=== PATIENT | male | born 1955 | race Caucasian/White ===

== ENCOUNTER → 2018-07-22 | Outpatient (CLI) | payer MEDICARE ==
[~2018-07-22] MED LIST: AMLO10TA6 PO; AMOX1TAB64 PO; DOXA1TAB2 PO; FINA5TAB4 PO; HYDR-2442 PO; LOSA100T7 PO; METH1TAB21 PO; METO25TA35 PO; PROM12.553 RC; TAMS0.4C2 PO
== END | disposition home or self-care (01) ==
LOC: RAD 09:35
PROVIDERS: ATTEND Urology
DX: N35.011 Post-traumatic bulbous urethral stricture (principal)
CPT/HCPCS: 74018

== ENCOUNTER 2018-08-24 12:34 | Outpatient (CLI) | payer MEDICARE | END 2018-09-04 09:07 | disposition home or self-care (01) | LOC: RAD 12:34 | PROVIDERS: ATTEND Urology | DX: N35.919 Unspecified urethral stricture, male, unspecified site (principal) | CPT/HCPCS: 51600; 74450 ==

== ENCOUNTER → 2018-10-16 | Outpatient (CLI) | payer MEDICARE ==
[~2018-10-16] MED LIST changes: +CLON0.1T22 PO
[2018-10-16 11:22] LABS: BASOPHILS # (AUTO) 0.03 x10^3/uL (0-0.1); BASOPHILS % (AUTO) 0 % (0-1); EOSINOPHILS # (AUTO) 0.33 x10^3/uL (0-0.4); EOSINOPHILS % (AUTO) 3 % (1-7); LYMPHOCYTES # (AUTO) 1.67 x10^3/uL (1-3.4); LYMPHOCYTES % (AUTO) 13 % (22-44); MD NO; MEAN CORPUSCULAR HEMOGLOBIN 31.3 pg (27.5-34.5); MEAN CORPUSCULAR VOLUME 92.3 fL (81-97); MEAN PLATELET VOLUME 7.7 fL (7.4-10.4); MONOCYTES # (AUTO) 0.87 x10^3/uL (0.2-0.8); MONOCYTES % (AUTO) 7 % (2-9); NEUTROPHILS # (AUTO) 9.61 x10^3/uL (1.8-6.8); NEUTROPHILS % (AUTO) 77 % (42-75); PLATELET COUNT 309 x10^3/uL (130-400); RED BLOOD COUNT 4.79 x10^6/uL (4.38-5.82); RED CELL DISTRIBUTION WIDTH 14.3 % (9.4-14.8)
[2018-10-16 11:38] LABS: MICROSCOPIC INDICATED
[2018-10-16 12:03] LABS: ANION GAP 6 mmol/L (5-15); CHLORIDE 111 mmol/L (98-107)
[2018-10-16 12:30] LABS: ALANINE AMINOTRANSFERASE 26 U/L (12-78); ALBUMIN 3.1 g/dL (3.4-5.0); ALKALINE PHOSPHATASE 78 U/L (45-117); BILIRUBIN,TOTAL 0.4 mg/dL (0.2-1.0); CALCIUM 8.8 mg/dL (8.5-10.1); CREATININE 0.95 mg/dL (0.7-1.3); TOTAL PROTEIN 8.1 g/dL (6.4-8.2)
== END | disposition home or self-care (01) ==
LOC: STAR 10:27
PROVIDERS: ATTEND Urology
DX: Z01.818 Encounter for other preprocedural examination (principal); N35.919 Unspecified urethral stricture, male, unspecified site; I10 Essential (primary) hypertension; Z87.891 Personal history of nicotine dependence
CPT/HCPCS: 36415; 71045; 80053; 81001; 85025; 87086; 93005

== ENCOUNTER 2018-11-02 11:55 | Inpatient (IN) | payer MEDICARE ==
[~2018-11-02] VITALS: Ht 162.6 cm; Wt 58.7 kg
[~2018-11-02 11:55] MED LIST changes: -AMLO10TA6 PO; +AMLO10TA8 PO; +LOSA100T14 PO; -LOSA100T7 PO
[2018-11-02] MEDS ORDERED: LACTATED RINGERS 1,000 ML IV SCH (12:23)
[2018-11-02 12:50] VITALS: BP 111/69
[2018-11-02] MEDS ORDERED: SULF1TAB24 PO (12:57)
[2018-11-02] MEDS ORDERED: ALBUTEROL/IPRATROPIUM 2.5MG/0.5MG, 3 ML ONE ×2 (13:40→17:01)
[2018-11-02] MEDS ORDERED: ALBUTEROL/IPRATROPIUM 2.5MG/0.5MG, 3 ML NEB ONE (13:40)
[2018-11-02] MEDS ORDERED: SUGAMMADEX 200 MG/2 ML IVPush ONE (13:47)
[2018-11-02] MEDS ORDERED: PROPOFOL 10 MG/ML, 20ML ONE ×2 (14:00→14:57)
[2018-11-02] MEDS ORDERED: FENTANYL PF 100 MCG/2ML ONE ×2 (14:00→17:02)
[2018-11-02] MEDS ORDERED: ALBUTEROL/IPRATROPIUM 2.5MG/0.5MG, 3 ML NPPB ONE (14:00)
[2018-11-02] MEDS ORDERED: CEFAZOLIN 1,000 MG ONE (14:00)
[2018-11-02] MEDS ORDERED: MORPHINE SULFATE 4 MG/ML, 1ML IVPush PRN (15:00)
[2018-11-02] MEDS ORDERED: MEPERIDINE/PF 25MG/0.5ML IVPush PRN (15:00)
[2018-11-02] MEDS ORDERED: HYDROcodone/APAP 7.5-325MG/15ML UDC PO PRN (15:00)
[2018-11-02] MEDS ORDERED: ALBUTEROL/IPRATROPIUM 2.5MG/0.5MG, 3 ML NPPB PRN (15:00)
[2018-11-02] MEDS ORDERED: HYDROmorphone 2 MG/ML, 1ML IVPush PRN (15:00)
[2018-11-02] MEDS ORDERED: OXYcodone 5 MG/5 ML ORAL.SOL UDC ONE ×2 (17:02→17:36)
[2018-11-02] MEDS: FENTANYL PF 100 MCG/2ML IV PRN ×3 (17:04→17:30)
[2018-11-02] MEDS: OXYcodone 5 MG/5 ML ORAL.SOL UDC PO PRN ×2 (17:10→17:35)
[2018-11-02] MEDS ORDERED: KETOROLAC 30 MG/1 ML ONE (17:26)
[2018-11-02] MEDS: KETOROLAC 30 MG/1 ML IVPush PRN (17:30)
[2018-11-02] MEDS ORDERED: EPHEDRINE 50 MG/ML, 1ML ONE (19:06)
[2018-11-02] MEDS ORDERED: PHENYLEPHRINE 10 MG/ML ONE (19:06)
[2018-11-02] MEDS ORDERED: GENTAMICIN 80 MG/2 ML ONE (19:06)
[2018-11-02] MEDS ORDERED: ROCURONIUM 10 MG/ML,10ML ONE (19:06)
[2018-11-02 19:50] VITALS: BP 142/76
[2018-11-02] MEDS ORDERED: KETOROLAC 30 MG/1 ML IV PRN (20:30)
[2018-11-02] MEDS ORDERED: ONDANSETRON 2MG/ML, 2ML IV PRN (20:30)
[2018-11-02] MEDS ORDERED: HYDROmorphone 1 MG/ML, 1ML IV PRN (20:30)
[2018-11-02] MEDS: HYDROcodone/APAP 5/325 TABLET PO PRN (22:45)
[2018-11-02] MEDS: CEFAZOLIN PMX 1GM/50ML 50 ML IVPB SCH (22:45)
[2018-11-03 00:17] VITALS: BP 108/60
[2018-11-03] MEDS: KETOROLAC 30 MG/1 ML IVPush PRN (03:16)
[2018-11-03] MEDS: LACTATED RINGERS 1,000 ML IV SCH ×2 (03:16→07:33)
[2018-11-03] MEDS: HYDROcodone/APAP 5/325 TABLET PO PRN ×2 (03:25→07:33)
[2018-11-03 04:15] VITALS: BP 114/63
[2018-11-03] MEDS: CEFAZOLIN PMX 1GM/50ML 50 ML IVPB SCH (06:19)
[2018-11-03 07:52] VITALS: BP 112/61
[2018-11-03 11:33] VITALS: BP 157/76
[2018-11-03] MEDS ORDERED: KETO10TA PO (11:51)
== END 2018-11-03 12:40 | disposition home or self-care (01) | DRG 663 ==
LOC: OUT 11:55 → 4NOR 18:05 → OUT 18:36 → DCLOUNGE 11-03 12:21
PROVIDERS: ADMIT Urology; ATTEND Urology
PROC: 0TQD0ZZ Repair Urethra, Open Approach (ICD-10-PCS; principal; 2018-11-03)
PROC: 0TBD0ZX Excision of Urethra, Open Approach, Diagnostic (ICD-10-PCS; 2018-11-03)
DX: N35.919 Unspecified urethral stricture, male, unspecified site (principal); L02.215 Cutaneous abscess of perineum; N34.0 Urethral abscess; N40.0 Benign prostatic hyperplasia without lower urinary tract symptoms; Z87.442 Personal history of urinary calculi; Z82.49 Family history of ischemic heart disease and other diseases of the circulatory system
CPT/HCPCS: 87070; 87075; 87205; 88305; 94640; G0378; J0690; J1885; J2704; J3010; J7620; C1769; J1580; J2370; J7120

== ENCOUNTER → 2018-12-17 | Outpatient (CLI) | payer MEDICARE ==
[~2018-12-17] MED LIST changes: +GADOBUTROL 7.5 MMOL/7.5 ML VIAL ONE; +KETO10TA PO; +SULF1TAB24 PO
== END | disposition home or self-care (01) ==
LOC: CFH 13:02
PROVIDERS: ATTEND Physician Assistant
DX: N28.1 Cyst of kidney, acquired (principal); B18.2 Chronic viral hepatitis C; R93.89 Abnormal findings on diagnostic imaging of other specified body structures; K29.70 Gastritis, unspecified, without bleeding; Z86.010 Personal history of colon polyps
CPT/HCPCS: 74183; A9585